=== PATIENT | female | born 1960 | race Caucasian/White ===

== ENCOUNTER 2019-06-19 15:41 | Emergency (ER) | payer BC ==
[~2019-06-19] VITALS: Ht 165.1 cm; Wt 88.5 kg
[2019-06-19] MEDS ORDERED: NEURONTIN300 MG PO (16:01)
== END 2019-06-19 17:24 | disposition home or self-care (01) ==
LOC: ED 15:41
PROC: 0HQFXZZ Repair Right Hand Skin, External Approach (ICD-10-PCS; principal; 2019-06-19)
DX: S61.216A Laceration without foreign body of right little finger without damage to nail, initial encounter (principal); F32.9 Major depressive disorder, single episode, unspecified; F17.200 Nicotine dependence, unspecified, uncomplicated; Z79.899 Other long term (current) drug therapy; W23.0XXA Caught, crushed, jammed, or pinched between moving objects, initial encounter
CPT/HCPCS: 12002; 99283-25